=== PATIENT | male | born 1960 | race Caucasian/White ===

== ENCOUNTER 2017-10-10 07:47 | Emergency (ER) | payer OTHER ==
--- NOTE | 2017-10-10 07:51 | UC ---
Ear Complaint HPI - HPI Summary HPI Summary: 57 year old male presents with right ear pain and bleeding. Patient has been treated with cortisporin otic suspension 3 days ago for otitis externa. - History of Current Complaint Stated Complaint: RIGHT EAR COMPLAINT Time Seen by Provider: 10/10/17 07:50 Hx Obtained From: Patient Onset/Duration: Sudden Onset Severity Initially: Moderate Severity Currently: Moderate Pain Scale Used: 0-10 Numeric - 4 - Allergies/Home Medications Allergies/Adverse Reactions: Allergies Allergy/AdvReac Type Severity Reaction Status Date / Time Penicillins Allergy Rash Verified 10/10/17 07:54 Home Medications: Home Medications Aspirin EC Low Dose* [Ecotrin EC Low Dose 81 MG*] 81 mg PO DAILY 10/10/17 [ History Confirmed 10/10/17] Cholecalciferol TAB* [Vitamin D TAB*] 5,000 unit PO DAILY 10/10/17 [History Confirmed 10/10/17] DULoxetine DR CAP* [Cymbalta CAP*] 60 mg PO DAILY 10/10/17 [History Confirmed ] Hydrochlorothiazide TAB* [Hydrodiuril TAB*] 10 mg PO DAILY 10/10/17 [History Confirmed 10/10/17] buPROPion TAB* [Wellbutrin TAB*] 450 mg PO DAILY 10/10/17 [History Confirmed ] traZODone TAB* [Desyrel TAB*] 100 mg PO BEDTIME 10/10/17 [History Confirmed ] PMH/Surg Hx/FS Hx/Imm Hx Previously Healthy: Yes Review of Systems Constitutional: Negative Skin: Negative Eyes: Negative ENT: Ear Ache - rigth ear pain/bleeding Respiratory: Negative Cardiovascular: Negative Gastrointestinal: Negative Genitourinary: Negative Motor: Negative Neurovascular: Negative Musculoskeletal: Negative Neurological: Negative Psychological: Negative All Other Systems Reviewed And Are Negative: Yes Physical Exam Triage Information Reviewed: Yes Vital Signs Reviewed: Yes Eye Exam: Normal ENT: Positive: Other - right ear pain/bleeding Dental Exam: Normal Neck exam: Normal Neck: Positive: 1 Respiratory Exam: Normal Cardiovascular Exam: Normal Abdominal Exam: Normal Musculoskeletal Exam: Normal Neurological Exam: Normal Psychological Exam: Normal Skin Exam: Normal Ear Complaint Course/Dx - Differential Dx/Diagnosis Provider Diagnoses: rigth ear bleeding. right ear pain Discharge - Discharge Plan Condition: Stable Disposition: HOME Prescriptions: Amoxicillin/Clavulanate TAB* [Augmentin TAB 875*] 875 mg PO BID #20 tab Azithromyxin DARCY (NF) [Z-Darcy (Zithromax) 250 mg tabs #6] 2 tab PO .TODAY, THEN 1 DAILY #6 tab Ciproflox/Dexameth OTIC.SUSP* [Ciprodex OTIC.SUSP*] 1 drop RIGHT EAR BID #1 btl Patient Education Materials: Otitis Externa (ED), Earache (ED) Referrals: Kamron Camarillo MD [Primary Care Provider] - Odin Fu MD [Medical Doctor] - Additional Instructions: PATIENT REQUESTED DR FU
[2017-10-10 07:54] VITALS: BP 126/82
== END 2017-10-10 08:14 | disposition home or self-care (01) ==
LOC: UCCORT 07:47
DX: H92.21 Otorrhagia, right ear (principal); H92.01 Otalgia, right ear; Z79.82 Long term (current) use of aspirin; Z88.0 Allergy status to penicillin
CPT/HCPCS: 99212; G0463